=== PATIENT | female | born 1995 | race Caucasian/White ===

== ENCOUNTER 2025-08-10 18:37 | Emergency (ER) | payer SELFPAY ==
[~2025-08-10] VITALS: Ht 170.2 cm; Wt 91.0 kg
[2025-08-10 18:41] VITALS: O2SAT 98
[2025-08-10 18:54] VITALS: BP 128/83; PULSE 86; RESP 18; TEMP 37.1; O2SAT 98
[2025-08-10 20:04] LABS: COLOR URINE YELLOW (YELLOW); GLUCOSE URINE NEGATIVE (NEGATIVE); KETONES URINE NEGATIVE (NEGATIVE); LEUKOCYTE ESTERASE URINE NEGATIVE (NEGATIVE); NITRITE URINE NEGATIVE (NEGATIVE); OCCULT BLOOD URINE NEGATIVE (NEGATIVE); PH URINE 7.5 (4.5-8.0); PROTEIN URINE TRACE (NEGATIVE); SPECIFIC GRAVITY URINE 1.028 (1.005-1.030); UROBILINOGEN URINE 1.0 E.U./dL (0.2-1.0)
[2025-08-10 21:33] LABS: CLARITY URINE HAZY (CLEAR)
[2025-08-10 21:34] LABS: BACTERIA URINE TRACE; RBC URINE NONE SEEN /hpf (0-2); SQUAMOUS EPITHELIAL CELL URINE 3+ /lpf (RARE/1+); WBC URINE 0-2 /hpf (0-2)
[2025-08-10 21:35] LABS: MUCUS URINE TRACE /lpf (< = 2+)
[2025-08-10] MEDS ORDERED: FLUC150T46 MT (23:39)
[2025-08-10] MEDS ORDERED: METR-167 MT (23:39)
[2025-08-10] MEDS ORDERED: DOXY100T28 MT (23:39)
[2025-08-10] MEDS: CEFTRIAXONE SODIUM 500MG VIAL IM ONE (23:44)
[2025-08-10] MEDS: DOXYCYCLINE HYCLATE 100MG CAPSULE PO ONE (23:44)
[2025-08-13 05:09] LABS: CHLAMYDIA TRACHOMATIS NAA Negative (Negative); NEISSERIA GONORRHOEAE NAA Negative (Negative)
== END 2025-08-11 00:12 | disposition home or self-care (01) ==
LOC: ER 18:37
DX: N76.0 Acute vaginitis (principal); Z87.59 Personal history of other complications of pregnancy, childbirth and the puerperium
CPT/HCPCS: 99284; 87491; 87591; 81003; 81025; 87210; 96372; J0696